=== PATIENT | female | born 1985 | race Caucasian/White ===

== ENCOUNTER → 2017-11-23 19:08 | Outpatient (CLI) | payer MEDICAID, SELFPAY | PROVIDERS: Visit Provider Physician Assistant Medical | DX: J02.9 Acute pharyngitis, unspecified (principal) | CPT/HCPCS: 87077; 87081 ==

== ENCOUNTER → 2018-02-28 18:20 | Outpatient (CLI) | payer MEDICAID, SELFPAY | PROVIDERS: Visit Provider Physician Assistant Surgical | DX: J02.9 Acute pharyngitis, unspecified (principal) | CPT/HCPCS: 87081 ==

== ENCOUNTER → 2018-10-17 11:50 | Outpatient (CLI) | payer MEDICAID, SELFPAY ==
[2018-10-09 12:48] VITALS: BMI 31.1
[2018-10-17 13:19] LABS: Vitamin D,25 Hydroxy 31.3 ng/mL (29.95-100.01)
[2018-10-17 13:24] LABS: ALB/GLOB Ratio 1.2 RATIO (0.9-2.4); AST(SGOT) 16 U/L (15-37); Alanine Aminotransfer ALT/SGPT 22 U/L (13-56); Albumin, Serum 4.3 g/dL (3.2-5.0); Alkaline Phosphatase 47 U/L (45-117); Anion Gap 13 (5-15); BUN 18 mg/dL (7-18); BUN/Creat Ratio 21.5 RATIO (10-20); Calcium,Total 8.8 mg/dL (8.5-10.1); Chloride 105 mmol/L (98-107); Cholesterol 149 mg/dL (200); Creatinine, Serum 0.84 mg/dL (0.55-1.02); EST Glomerular Filtration Rate 82 mL/min (>60); Est Glom Filt Rate - Afr Amer 99 mL/min (>60); Globulin 3.6 g/dL (2.2-4.2); Glucose 120 mg/dL (74-106); High Density Lipoprotein 42 mg/dL; Potassium 4.4 mmol/L (3.5-5.1); Protein, Total 7.9 g/dL (6.4-8.2); Sodium Level 141 mmol/L (136-145); Thyroid Stim Hormone (TSH) 1.41 uIU/mL (0.358-3.74); Triglycerides 169 mg/dL; Very Low Density Lipoprotein 34 mg/dL (5-40)
== END ==
PROVIDERS: Family Provider Nurse Practitioner Family; PCP Nurse Practitioner Family; Referring Provider Nurse Practitioner Family; Visit Provider Nurse Practitioner Family
DX: I10 Essential (primary) hypertension (principal); E78.2 Mixed hyperlipidemia; E55.9 Vitamin D deficiency, unspecified
CPT/HCPCS: 80053; 80061; 82306; 84443

== ENCOUNTER 2018-10-19 05:37 | Day surgery (SDC) | payer MEDICAID, SELFPAY ==
[2018-10-09 12:48] VITALS: BMI 31.1
[2018-10-17 12:44] LABS: Hematocrit 43.7 % (37-47); Hemoglobin 14.3 g/dl (12.0-15.0); Mean Corp Hgb Conc 32.7 g/gl (32-36); Mean Corpuscular Hgb 28.5 pg (27.0-32.0); Mean Corpuscular Volume 87.2 fL (81-99); Mean Platelet Vol. 8.8 fl (6.2-12.0); Platelet Count 340 K/mm3 (150-450); RBC Distribution Width CV 13.1 % (11.6-14.6); RBC Distribution Width SD 41.8 fl (35.1-43.9); Red Blood Count 5.01 M/mm3 (4.2-5.4); White Blood Count 8.2 K/mm3 (4.4-11.0)
[2018-10-17 12:46] LABS: Scan Indicated on CBC? Y/N NO
[2018-10-17 13:47] LABS: Hemoglobin A1c 5.4 % (4.2-6.3)
[2018-10-19] VITALS (15 sets, daily range): BP systolic 103–133; BP diastolic 42–86; PULSE 66–94; RESP 16–18; TEMP 36.1–36.8; O2SAT 95–100; BMI 33.5; BMI 34.3
--- NOTE | 2018-10-19 00:23 | PCM.HPOB.BLA ---
- Problem List (1) BMI 36.0-36.9,adult Status: Acute Comment: calorie counting, adipex. 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 Required: No Is patient in pain?: No Allergies doxycycline Allergy (Mild, Verified 10/09/18 12:48) Other Medications cholecalciferol (vitamin D3) 1,000 unit capsule 1,000 unit PO ONCE 11/23/17 [History Confirmed 10/09/18] lisinopril 5 mg tablet 5 mg PO QDAY 11/23/17 [History Confirmed 10/09/18] metformin 1,000 mg tablet 1,000 mg PO BID 11/23/17 [History Confirmed 10/09/18] naproxen 250 mg tablet 250 mg PO TID 11/23/17 [History Confirmed 10/09/18] spironolactone 25 mg tablet 25 mg PO QAM 11/23/17 [History Confirmed 10/09/18] loratadine 10 mg tablet 10 mg PO QDAY 02/14/18 [History Confirmed 10/09/18] simvastatin 40 mg tablet 40 mg PO QPM 04/20/18 [History Confirmed 10/09/18] Is last menstrual period known: No Post menopausal: No Patient : No : No PFSH Medical History Abnormal Pap smear of cervix (Acute) Arthritis (Acute) Bicornuate uterus (Acute) Diarrhea (Acute) GERD (gastroesophageal reflux disease) (Acute) Gestational diabetes (Acute) Heart murmur (Acute) Hemorrhoids (Acute) Hirsutism (Acute) Hyperglyceridemia (Acute) PCOS (polycystic ovarian syndrome) (Acute) Seasonal allergies (Acute) Seizures (Acute) Staph infection (Acute) HTN (hypertension) (Chronic) Surgical History H/O laparoscopy (Acute) History of colposcopy (Acute) Hx of section (Acute) Hx of tonsillectomy (Acute) Family History Mother Hypertension COPD (chronic obstructive pulmonary disease) Epilepsy Seizures Grandmother Hypertension Grandfather Lung cancer Diabetes Social History Smoking Status: Never smoker alcohol intake: current alcohol intake frequency: a few times a month details: social substance use type: does not use caffeine: Yes what type of physical activity do you participate in: walking seatbelt use: always do you feel safe at home: Yes additional social history: - Works at [employer] HPI Pre-op/questions regarding surgery: Details: CHARLOTTE FULLER is a 33 year old who presents for persistent AUB and severe dysmenorrhea. she has a history of irregular menses. she has a history of PCOS and irregular menses. Female Reproductive History Cycle Length: 21-35 Bleeding Duration: 2 Pregancy History 1 Elective abortions Hx Para 1 Spontaneous abortions Hx # Term Pregnancies Ectopic pregnancies Hx # Pregnancies Multiple births # of living children Past Pregnancies Del. Date Name GA/Weeks Outcome Route Bth Weight [facility] - full term Female [facility] ROS Const Constitutional: Denies fatigue, fever(s), headache(s), increased appetite, poor appetite, weight gain or weight loss Cardio Card: Denies chest pain Resp Resp: Denies cough or dyspnea GI GI: Reports as per HPI; denies abdominal pain, constipation, nausea or vomiting : Reports as per HPI; denies difficulty urinating, painful urination, nipple discharge, urinary frequency, urinary incontinence, urinary hesitancy, urinary urgency, vaginal discharge, vaginal dryness, vaginal odor or vaginal itching Skin Skin/Breast: Denies change in hair, breast lump, breast pain, breast skin changes or nipple discharge Exam Const General: cooperative, healthy appearing, comfortable, no acute distress, well developed Nutritional Appearance: average body habitus Orientation: alert HENMT Head: normal to inspection, normocephalic Neck Neck: normal visual inspection, trachea midline Thyroid: thyroid normal Resp Effort & Inspection: normal respiratory effort GI Inspection: normal to inspection, non-distended Palpation: soft, no hepatosplenomegaly Skin General: no rashes or lesions noted Assessment & Plan Problems 1. PCOS (polycystic ovarian syndrome) E28.2 failed medical managment 2. Abnormal uterine bleeding N93.9 failed medical management, recommend lavh 3. Dysmenorrhea N94.6 Plan discussed - cycles have been better and more regular but patient is still requesting hysterectomy due to irregular history and severe pain. plan plan lavh bs cysto discussed surgical risks including risks of anesthesia, infection, bleeding, injury to bowel, bladder or blood vessels, and patient wishes to proceed with surgery. Coding Level of Care Code No Charge Diagnoses PCOS (polycystic ovarian syndrome) E28.2 Abnormal uterine bleeding N93.9 Dysmenorrhea N94.6 UPDATE- I have seen the patient and performed any clinically relevant updates to the history and physical exam. Lesa Yepez MD
[2018-10-19 06:18] LABS: Internal QC Validated? YES +Cl - CLEAR BKGD; Pregnancy, Urine Negative Negative
[2018-10-19] MEDS: Celecoxib 200 MG Capsule 400 MG PO (06:25)
[2018-10-19] MEDS: Acetaminophen 500 MG Tablet 1000 MG PO ×3 (06:25→18:03)
[2018-10-19] MEDS: Scopolamine 1mg/72hr Patch 1 PATCH TRANSDERM. (06:25)
[2018-10-19] MEDS: Enoxaparin 40 MG/0.4 ML Syringe SC (06:25)
[2018-10-19] MEDS: Gabapentin 600 MG Tablet PO (06:25)
[2018-10-19] MEDS: Phenazopyridine 95 MG Tablet 190 MG PO (06:27)
[2018-10-19] MEDS: Magnesium Sulfate 4gm/100mL 4 GM/100 ML IV.SOLN. IV (06:56)
[2018-10-19] MEDS: Lactated Ringers 1,000 ML 40 ML IV (06:56)
[2018-10-19 07:06] LABS: Bedside Glucose 87 mg/dL (70-110)
--- NOTE | 2018-10-19 07:30 | HYST_PTH ---
PATIENT: CHARLOTTE FULLER LOC: [facility] [place] U#:[id number] AGE/SX: 33/F ROOM: RE10/19/[address]: Dr. Lesa Yepez MD : [id number] BED: DIS: 10/20/2018 SPEC #: [id number] RECD: 10/19/18 10:49 STATUS: HERMILO INES #: [id number] HONG: 10/19/18 07:[address]: Lesa Yepez DEPT: SURGICAL PATHOLOGY RECD BY: Oliver Sheikh ENTERED: 10/19/18 12:20 SP TYPE: HYSTERECT OTHR DR: Karen Looney, PAWN BROKER-C Tissues: Uterus, NOS Procedures: Surgery Specimen Level V HEADER OPERATION: ERAS laparoscopic assisted vaginal hysterectomy, bilateral salpingectomy PRE-OP DIAGNOSIS: Polycystic ovarian syndrome; abnormal uterine bleeding; dysmenorrhea TISSUE SUBMITTED: Uterus and bilateral fallopian tubes MICROSCOPIC DIAGNOSIS Uterus, hysterectomy: Cervix - mild chronic inflammation. Endometrium - proliferative endometrium. Myometrium - leiomyomas and adenomyosis. Right fallopian tube - no pathologic change. Left fallopian tube - benign paratubal cysts. AM:adrian 10/20/18 MICROSCOPIC DESCRIPTION Slides are reviewed. GROSS DESCRIPTION Received in fixative is one container labeled with the patient's name and designated uterus and bilateral tubes. The specimen consists of a hysterectomy specimen consisting of uterus with cervix and attached right fallopian tube and detached left fallopian tube. The uterus with cervix weighs 85 gm and measures 9 x 7 x 4 cm. The serosal surface is millan, glistening. The ectocervical mucosa is unremarkable. The external os is slit-like in contour. The endocervical canal measures 3.5 cm in length and the endocervical mucosa is millan, glistening and unremarkable. The triangular endometrial cavity measures 4 cm in length and up to 3 cm in width. The endometrium is millan, glistening without any mass lesion and measures 0.2 cm in thickness. Sections of the uterine wall reveal a nodular mass measuring 1 cm in greatest dimension. The uninvolved uterine wall measures up to 2 cm in thickness. The attached right fallopian tube measures 6 cm in length and 0.7 cm in diameter. The fimbrial end is identified. The detached left fallopian tube measures 4 cm in length and up to 1 cm in diameter. Sections reveal unremarkable cut surfaces. Coin Machine Collector sections are submitted in nine cassettes as follows: 1 - anterior cervix, 2 - posterior cervix, 3 & 4 - anterior uterine wall, 5 & 6 - posterior uterine wall, 7 - nodular mass, 8 - right fallopian tube, 9 - left fallopian tube. / DAVID:adrian 10/19/18 TC: 1 CPT: 32808
--- NOTE | 2018-10-19 07:34 | PCM.OPRPT ---
Problem List (1) BMI 36.0-36.9,adult Status: Acute Comment: calorie counting, adipex. [phone] (2) Sinusitis, acute Status: Acute Qualifiers: (3) Abnormal uterine bleeding Status: Chronic Comment: failed medical management, recommend lavh (4) PCOS (polycystic ovarian syndrome) Status: Chronic Comment: failed medical managment Report of Operation Date of Procedure: 10/19/18 Pre-Operative Diagnosis: aub Post-Operative Diagnosis: same Surgery/Procedure Performed:: lavh bs cysto Description of Surgical Findings:: minimal endometriosis implants ovary tube and posterior uterus, small omental to anterior abdominal wall adhesions. marketing intelligence manager: Meghan Hinojosa Type of Anesthesia:: General Special Medications: cefotetan, katelin Specimen's removed: uterus tubes Drains: landis Estimated Blood Loss (mL): 50 Fluids Replaced: crystalloid Description of Procedure: Patient received preoperative antibiotics and SCDs were on preoperatively. Patient was taken back to the operating room and placed in the dorsal lithotomy position. General anesthesia was induced and patient was prepped and draped in normal sterile fashion. Uterine manipulator was placed inside the uterus and Landis catheter placed in the bladder. The umbilicus was grasped with towel clamps and an intraumbilical incision was made after injecting with quarter percent Marcaine and a Veress needle entered into the abdomen confirmed to be intra-abdominal with a low opening pressure. Abdomen was insufflated with CO2 gas and the Veress needle removed and the 5 mm trocar was placed under direct visualization without complication. Right and left lower quadrants were transilluminated and injected with quarter percent Marcaine and 5 mm ports placed under direct visualization. Pelvis was well visualized see operative findings for additional information. omental to anterior abdominal wall adhesions were taken down. Bilateral fallopian tubes were identified and transected with the LigaSure device across the mesosalpinx to the level of the utero-ovarian ligament which was also transected with the LigaSure device. The broad ligament was opened up by transecting the round ligament bilaterally and skeletonizing the uterine vessels bilaterally and creating a bladder flap using the LigaSure device. The uterine arteries were transected bilaterally with good visualization of the bladder and the ureters were seen to be inferior lateral to the operative area. Attention was then paid to the vaginal portion of the procedure and the cervix was grasped with Lucille clamps and circumferentially injected with dilute vasopressin. A circumferential incision was made and the vaginal mucosa was mobilized off posteriorly and the cul-de-sac entered into sharply and a longneck speculum placed. The anterior cul-de-sac was then identified and entered into sharply. The uterosacral ligaments were clamped cut and suture ligated with 0 Monocryl bilaterally followed by the cardinal ligaments which were clamped cut and suture ligated bilaterally with 0 Monocryl. The uterus serially descended and was removed without difficulty with minimal morcellation. Pelvic sidewall pedicles were checked and noted to have excellent hemostasis. The vaginal mucosa was reapproximated incorporating the posterior peritoneum. This was reapproximated using 0 Vicryl [id number] sutures. Excellent hemostasis was noted. The cystoscopy was then performed and bilateral ureteral strong spray was noted and the bladder was noted to have no abnormality or lesions seen. Landis catheter was replaced and then attention paid to the abdominal portion of the procedure again. The pelvis and cul-de-sac was well visualized and no significant active bleeding noted but some raw areas were seen on the peritoneum and therefore Katelin was applied. Pressure was taken down and the areas visualized and noted of excellent hemostasis. All ports were removed under direct visualization without complication and the abdomen was desufflated of air. The instruments removed from the abdomen and the vagina vaginal sweep was negative. Port sites on the abdomen were closed with 4-0 Monocryl interrupted sutures and Steri's and windows were applied. She was awoken and taken recovery in stable condition. Grafts/Implants Used: none - Complications none - Admit VTE Documentation VTE Present on Admission: No VTE Mechan Device Prophylaxis: SCD's
--- NOTE | 2018-10-19 07:38 | DCINST_ITS ---
Discharge Diet: No Restrictions Discharge Activity: Return to Normal Activity, May Not Drive, May Shower May resume sexual activity in: 6-8 weeks Call your doctor if your incision/area has: Continuous Slow Oozing, Sudden Increased Bleeding, Increased Pain/ Swelling, Increased Redness, Foul Smelling Discharge Call your doctor if you observe: Fever of 101 or Higher, Inability to urinate, Inability to have a bowel movement, Using more than one pad per hour Allergies/Adverse Reactions: Allergies doxycycline Allergy (Mild, Verified 10/12/18 11:02) Other Medications to take at Discharge cholecalciferol (vitamin D3) 1,000 unit capsule 1,000 unit PO ONCE 11/23/17 lisinopril 5 mg tablet 20 mg PO QDAY 11/23/17 metformin 1,000 mg tablet 1,000 mg PO BID 11/23/17 spironolactone 25 mg tablet 25 mg PO QAM 11/23/17 loratadine 10 mg tablet 10 mg PO QDAY 02/14/18 simvastatin 40 mg tablet 40 mg PO QPM 04/20/18 Naproxen 500 mg PO BID 10/12/18 Ibuprofen [Motrin] 600 mg PO Q6H PRN PRN #30 tablet 10/19/18 Oxycodone HCl/Acetaminophen [Percocet 5-325] 1 - 2 tablet PO Q4H PRN PRN 7 Days #15 tablet 10/19/18 The following prescriptions were given: Oxycodone HCl/Acetaminophen [Percocet 5-325] 1 - 2 tablet PO Q4H PRN PRN 7 Days #15 tablet PRN Reason: Pain Ibuprofen [Motrin] 600 mg PO Q6H PRN PRN #30 tablet PRN Reason: Pain Orders to be completed after discharge: Type & Screen Time Frame: 10/12/18, Facility: [facility], Location: Laboratory Hemoglobin A1c Time Frame: 10/12/18, Location: Laboratory Basic Metabolic Profile (BMP) Time Frame: 10/12/18, Location: Laboratory CBC-Complete Blood Cnt No Diff Time Frame: 10/12/18, Location: Laboratory Primary Care Physician: Karen Looney NP-C [Primary Care Provider] - Test Results: Test results from this visit will be discussed in further detail at your follow- up appointment, if applicable. Please Follow Up With: Lesa Yepez MD - [phone]
[2018-10-19] MEDS: Vasopressin 20 UNITS/ML Vial (08:30)
[2018-10-19] MEDS: Bupivacaine 0.25% 30 ML Vial (08:56)
[2018-10-19] MEDS: Lactated Ringers 1,000 ML 100 ML IV (10:39)
[2018-10-19] MEDS: 0.9% NaCl Peripheral Flush Adult/Peds IV (12:41)
[2018-10-19] MEDS: Docusate Sodium 100 MG Capsule PO ×2 (12:41→22:17)
[2018-10-19] MEDS: Loratadine 10 MG Tablet PO (12:41)
[2018-10-19] MEDS: Spironolactone 25 MG Tablet PO (12:41)
[2018-10-19] MEDS: Ketorolac 30 MG/ML Syringe IV ×2 (12:41→18:04)
[2018-10-19] MEDS: oxyCODONE 5 MG Tablet PO (16:48)
[2018-10-19] MEDS: Lactated Ringers 1,000 ML 70 ML IV (17:54)
[2018-10-19] MEDS: Atorvastatin Calcium 20 MG Tablet PO (22:17)
[2018-10-20] MEDS: Ketorolac 30 MG/ML Syringe IV ×2 (00:06→06:07)
[2018-10-20] MEDS: 0.9% NaCl Peripheral Flush Adult/Peds IV ×2 (00:07→06:11)
[2018-10-20] MEDS: Acetaminophen 500 MG Tablet 1000 MG PO (00:11)
[2018-10-20 03:44] VITALS: BP 124/68; PULSE 79; RESP 18; TEMP 36.7; O2SAT 97
[2018-10-20 06:43] LABS: Hematocrit 41.5 % (37-47); Hemoglobin 13.7 g/dl (12.0-15.0); Mean Corpuscular Hgb 28.8 pg (27.0-32.0); Mean Corpuscular Volume 87.2 fL (81-99); Mean Platelet Vol. 8.7 fl (6.2-12.0); Platelet Count 323 K/mm3 (150-450); RBC Distribution Width SD 41.6 fl (35.1-43.9); Red Blood Count 4.76 M/mm3 (4.2-5.4); White Blood Count 15.5 K/mm3 (4.4-11.0)
[2018-10-20 06:46] LABS: Scan Indicated on CBC? Y/N NO
[2018-10-20 07:15] VITALS: O2SAT 97
--- NOTE | 2018-10-20 08:16 | PCM.PN.OB ---
Subjective: Doing well. Thomas out, waiting to void. Pain controlled. - Physical Exam General: Alert, Oriented x3 Abdomen: Soft, Non Tender, Non-Distended, - - Dressing dry and intact Vital Signs Temp Pulse Resp BP Pulse Ox 98.0 F 79 18 124/68 H 97 10/20/18 03:44 10/20/18 03:44 10/20/18 03:44 10/20/18 03:44 10/20/18 03:44 Oxygen Flow Rate (L/min) 6 Oxygen Delivery Method Room Air Weight: 209 lb 7.026 oz Body Mass Index (BMI) 34.3 Intake and Output for Last 24 Hours 10/18/18 10/19/18 10/20/18 23:59 23:59 23:59 Intake Total 2633 / 2633 1463 / 1463 Output Total 1974 / 1974 3325 / 3325 Balance 658 / 658 -1862 / -1862 Laboratory Tests Past 24 Hrs 10/20/18 06:02 WBC 15.5 H RBC 4.76 Hgb 13.7 Hct 41.5 MCV 87.2 MCH 28.8 MCHC 33.0 RDW 13.0 RDW Differential 41.6 Plt Count 323 MPV 8.7 Medical Necessity - Tobacco Use Smoking Status: Never smoker Tobacco Use: Cigarettes Assessment/Plan All Active Problems (Last Reviewed 10/09/18 @ 12:48 by Sirisha Vega) BMI 36.0-36.9,adult (Acute) Sinusitis, acute (Acute) LAVH POD#1: Routine care. Plans home this AM
[2018-10-20 09:31] VITALS: BP 144/65; PULSE 87; RESP 16; TEMP 36.8; O2SAT 97
[2018-10-20] MEDS: Enoxaparin 40 MG/0.4 ML Syringe SC (09:34)
[2018-10-20] MEDS: Lisinopril 20 MG Tablet PO (09:35)
[2018-10-20] MEDS: Spironolactone 25 MG Tablet PO (09:35)
[2018-10-20] MEDS: Loratadine 10 MG Tablet PO (09:35)
[2018-10-20] MEDS: Docusate Sodium 100 MG Capsule PO (09:38)
== END 2018-10-20 10:41 | disposition home or self-care (01) ==
LOC: SDC 05:38 → AC 05:39 → MS3 08:15
PROVIDERS: Anesthesiology; Family Provider Nurse Practitioner Family; PCP Nurse Practitioner Family; Referring Provider Obstetrics & Gynecology; Visit Provider Obstetrics & Gynecology
PROC: 0UT9FZZ Resection of Uterus, Via Natural or Artificial Opening With Percutaneous Endoscopic Assistance (ICD-10-PCS; CPT 58552; principal; 2018-10-19 07:05)
DX: N80.0 Endometriosis of uterus (principal); N72 Inflammatory disease of cervix uteri; E28.2 Polycystic ovarian syndrome; N94.6 Dysmenorrhea, unspecified; N83.8 Other noninflammatory disorders of ovary, fallopian tube and broad ligament; Q51.3 Bicornate uterus; J01.90 Acute sinusitis, unspecified; L68.0 Hirsutism; I10 Essential (primary) hypertension; E78.00 Pure hypercholesterolemia, unspecified; E78.1 Pure hyperglyceridemia; M19.90 Unspecified osteoarthritis, unspecified site; K21.9 Gastro-esophageal reflux disease without esophagitis; Z79.84 Long term (current) use of oral hypoglycemic drugs; Z79.1 Long term (current) use of non-steroidal anti-inflammatories (NSAID); Z79.899 Other long term (current) drug therapy; Z86.32 Personal history of gestational diabetes; Z87.891 Personal history of nicotine dependence
CPT/HCPCS: 58552; 36415; 81025; 82962; 83036; 85027; 86850; 86900; 88307; J7120; A4216; J2405